=== PATIENT | male | born 1955 | race Caucasian/White ===

== ENCOUNTER 2017-08-17 06:36 | Day surgery (SDC) | payer OTHER ==
[2017-08-17] MEDS ORDERED: PROPOFOL 20 ML (08:10)
== END 2017-08-17 10:30 | disposition home or self-care (01) ==
LOC: GIL 06:36
DX: Z12.11 Encounter for screening for malignant neoplasm of colon (principal); K64.8 Other hemorrhoids; K57.90 Diverticulosis of intestine, part unspecified, without perforation or abscess without bleeding; I10 Essential (primary) hypertension; J44.9 Chronic obstructive pulmonary disease, unspecified; I25.10 Atherosclerotic heart disease of native coronary artery without angina pectoris
CPT/HCPCS: 45378